=== PATIENT | female | born 1975 | race Caucasian/White ===

== ENCOUNTER 2018-10-06 14:00 | Emergency (ER) | payer OTHER ==
[2018-10-06] MEDS ORDERED: NS 0.9% 1000 ML** 1,000 ML IV ONE (14:17)
[2018-10-06] MEDS ORDERED: Morphine 4 MG/ML VIAL (1 ml) 4 MG/ML VIAL IV ONE ×2 (14:17→16:16)
[2018-10-06] MEDS ORDERED: Ondansetron INJ* 2 MG/ML VIAL IV ONE (14:17)
[2018-10-06] MEDS ORDERED: Famotidine IV* 10 MG/ML 2 ML (20 mg) IV ONE (14:17)
[2018-10-06 14:32] LABS: ABS Lymphocytes 0.8 10^3/ul (1.0-4.8); ABS Monocytes 0.4 10^3/ul (0-0.8); ABS Neutrophils 6.3 10^3/ul (1.5-7.7); Eosinophil % 0.4 %; Hematocrit 38 % (35-47); Lymphocyte % 10.4 %; Mean Corpuscular HGB Conc 34 g/dL (31-36); Mean Corpuscular Hemoglobin 31 pg (27-31); Mean Corpuscular Volume 89 fL (80-97); Mean Platelet Volume 7.5 fL (7.4-10.4); Platelet Count 165 10^3/uL (150-450); Red Blood Count 4.25 10^6 /uL (3.70-4.87); Red Cell Distribution Width 13 % (10-15); White Blood Count 7.6 10^3/uL (3.5-10.8)
[2018-10-06 14:54] LABS: ALT 11 U/L (7-52); AST 17 U/L (13-39); Albumin/Globulin Ratio 1.6 (1-3); Alkaline Phosphatase 39 U/L (34-104); Anion Gap 7 mmol/L (2-11); BUN/Creatinine Ratio 13.2 (8-20); Blood Urea Nitrogen 10 mg/dL (6-24); C Reactive Protein 13.01 mg/L (<8.01); CO2 Carbon Dioxide 24 mmol/L (22-32); Chloride 105 mmol/L (101-111); EGFR African American 99.6 (>60); EGFR Non-African American 82.3 (>60); Globulin 2.5 g/dL (2-4); Glucose 105 mg/dL (70-100); Potassium 3.6 mmol/L (3.5-5.0); Sodium 136 mmol/L (135-145); Total Protein 6.5 g/dL (6.4-8.9)
--- NOTE | 2018-10-06 14:54 | ED ---
Abdominal Pain/Female - HPI Summary HPI Summary: The patient is a 43 y/o f presenting to the ED with the chief complaint of lower abdominal pain since this morning, 10/06/18. The patient reports intensifying pain since onset, radiating through her back. Patient also reports passing loose black stool several times throughout the day. She claims that her stool did not resemble diarrhea. Patient claimed that usage of a heating pad and ingestion of rice did not affect the pain. However, the ingestion of rice was quickly followed by a bowel movement, which was still dark; her male energy conservation specialist in the room confirmed that the stool was black. Patient experienced nausea/vomiting after ingesting rice, but is currently not experiencing nausea. Previously, the patient has experienced symptoms of irritable bowel syndrome, but her previous episodes were not as painful or intense as the one she is experiencing today. Patient denies feeling chest pain or shortness of breath. Her last menstrual cycle was two weeks ago. Patient denies any other medical history. Patient has a surgical history of spleen repair when she was [age] years old and cranial facial surgery when she was [age] years old. Patient has not reported any other aggravating/alleviating factors. - History of Current Complaint Chief Complaint: EDAbdPain Stated Complaint: ABD PAIN/BACK PAIN PER PT Time Seen by Provider: 10/06/18 14:17 Hx Obtained From: Patient, Family/Mold Chipper - male energy conservation specialist Hx Last Menstrual Period: 04/08/14 Onset/Duration: Lasting Hours, Worse Since Timing: Hours Severity Currently: Severe Pain Intensity: 10 Pain Scale Used: 0-10 Numeric Location: Other - lower abdomen Radiates: Yes Radiates to: Back Character: Other: - intense Aggravating Factor(s): Food - caused nausea/vomiting Alleviating Factor(s): Nothing Associated Signs and Symptoms: Positive: Back Pain, Blood in Stool, Nausea, Vomiting. Negative: Chest Pain, Diarrhea Allergies/Adverse Reactions: Allergies Allergy/AdvReac Type Severity Reaction Status Date / Time azithromycin Allergy Unknown Verified 10/06/18 14:09 Reaction Details Iodinated Contrast Media Allergy Sneezing Verified 10/06/18 15:49 Home Medications: Home Medications Beclomethasone Dipropionate [Qnasl] 1 - 2 spray BOTH NARES DAILY 10/06/18 [ History Confirmed 10/06/18] Norgestimate-Ethinyl Estradiol [Norg-Ee 0.18-0.215-0.25/0.035] 1 tab PO DAILY [History Confirmed 10/06/18] PMH/Surg Hx/FS Hx/Imm Hx GI History: Reports: Hx Irritable Bowel - Patient did not say that she was diagnosed, but experienced symptoms of IBS Sensory History: Denies: Hx Legally Blind - Cancer History Hx Chemotherapy: No Hx Radiation Therapy: No - Surgical History Surgical History: Yes Surgery Procedure, Year, and Place: Patient had a spleen repair surgery when she was [age] years old. Patient had a cranial face surgery when she was [age] years old Infectious Disease History: No Infectious Disease History: Denies: Traveled Outside the [place] in Last 30 Days - Family History Known Family History: Positive: Hypertension - Patient's mother and grandmother took blood pressure medicine, Blood Disorder - Patient's grandfather had a blood disorder, Other - Mother had diverticulitis - Social History Alcohol Use: Daily Substance Use Type: Reports: None Smoking Status (MU): Never Smoked Tobacco Review of Systems Negative: Chest Pain Negative: Shortness Of Breath Gastrointestinal: Other - POSITIVE - DARK STOOLS Positive: Abdominal Pain, Vomiting, Nausea - since resolved . Negative: Diarrhea All Other Systems Reviewed And Are Negative: Yes Physical Exam - Summary Physical Exam Summary: VITAL SIGNS: Reviewed. GENERAL: Patient is a well-developed and nourished female who is lying comfortable in the stretcher. Patient is not in any acute respiratory distress. HEAD AND FACE: No signs of trauma. No ecchymosis, hematomas or skull depressions. No sinus tenderness. EYES: PERRLA, EOMI x 2, No injected conjunctiva, no nystagmus. EARS: Hearing grossly intact. Ear canals and tympanic membranes are within normal limits. MOUTH: Oropharynx within normal limits. NECK: Supple, trachea is midline, no adenopathy, no JVD, no carotid bruit, no c- spine tenderness, neck with full ROM. CHEST: Symmetric, no tenderness at palpation. LUNGS: Clear to auscultation bilaterally. No wheezing or crackles. CVS: Regular rate and rhythm, S1 and S2 present, no murmurs or gallops appreciated. ABDOMEN: Diffuse abdominal tenderness. No rebound, no guarding, and no masses palpated. Bowel sounds are normal. RECTAL EXAM: Female nurse's aide present in the room during the exam. No hemorrhoids, gross blood, or melena. EXTREMITIES: FROM in all major joints, no edema, no cyanosis or clubbing. NEURO: Alert and oriented x 3. No acute neurological deficits. Speech is normal and follows commands. SKIN: Dry and warm. Triage Information Reviewed: Yes Vital Signs On Initial Exam: Initial Vitals Temp Pulse Resp BP Pulse Ox 98.6 F 80 16 146/94 100 10/06/18 14:04 10/06/18 14:04 10/06/18 14:04 10/06/18 14:04 10/06/18 14:04 Vital Signs Reviewed: Yes Abdomen Description: Negative: Guarding Diagnostics - Vital Signs Vital Signs Temp Pulse Resp BP Pulse Ox 10/06/18 14:36 16 10/06/18 14:04 98.6 F 80 16 146/94 100 - Laboratory Lab Results: Lab Results 10/06/18 10/06/18 Range/Units 14:22 14:26 WBC 7.6 (3.5-10.8) 10^3/uL RBC 4.25 (3.70-4.87) 10^6 /uL Hgb 13.0 (12.0-16.0) g/dL Hct 38 (35-47) % MCV 89 (80-97) fL MCH 31 (27-31) pg MCHC 34 (31-36) g/dL RDW 13 (10-15) % Plt Count 165 (150-450) 10^3/uL MPV 7.5 (7.4-10.4) fL Neut % (Auto) 83.1 % Lymph % (Auto) 10.4 % [place] % (Auto) 5.8 % Eos % (Auto) 0.4 % Baso % (Auto) 0.3 % Absolute Neuts (auto) 6.3 (1.5-7.7) 10^3/ul Absolute Lymphs (auto) 0.8 L (1.0-4.8) 10^3/ul Absolute Monos (auto) 0.4 (0-0.8) 10^3/ul Absolute Eos (auto) 0.0 (0-0.6) 10^3/ul Absolute Basos (auto) 0.0 (0-0.2) 10^3/ul Absolute Nucleated RBC 0.0 10^3/ul Nucleated RBC % 0.0 Blood Type B Positive Antibody Screen Pending Result Diagrams: 10/06/18 14:26 10/06/18 14:26 Lab Statement: Any lab studies that have been ordered have been reviewed, and results considered in the medical decision making process. - CT AB CT CT Interpretation Completed By: Radiologist Summary of CT Findings: IMPRESSION: NO ACUTE NONCONTRAST CT PATHOLOGY OF THE VISUALIZED ABDOMEN OR PELVIS. ED provider has reviewed this report. - EKG 1426 Cardiac Rate: NL - 76 bpm EKG Rhythm: Sinus Rhythm - normal Summary of EKG Findings: Normal sinus rhythm with rate of 76 bpm, no ST elevations Re-Evaluation - Re-Evaluation First Eval Re-Evaluation Time: 18:01 Change: Improved Comment: I discussed all the findings and test results with the patient. Patient was instructed to return to the emergency room immediately if any of the symptoms return worsens. Plan of care was discussed with the patient and understands and agrees. All questions were answered at patient satisfaction. There were no further complaints or concerns. Lung exam before discharge: CTA B/ L. Good air exchange. No wheezing or crackles heard. CVS: S1 and S2 present. No murmurs appreciated. Patient is alert and oriented x 3. Patient is hemodynamically stable. Patient will be discharged home with follow up PCP in the next 2-3 days Abdominal Pain Fem Course/Dx - Course Course Of Treatment: The patient is a 43 y/o f presenting to the ED with the chief complaint of lower abdominal pain since this morning, 10/06/18. The patient reports intensifying pain since onset, radiating through her back. Patient also reports passing loose black stool several times throughout the day. She claims that her stool did not resemble diarrhea. Patient claimed that usage of a heating pad and ingestion of rice did not affect the pain. However, the ingestion of rice was quickly followed by a bowel movement, which was still dark; her male energy conservation specialist in the room confirmed that the stool was black. Patient experienced nausea/vomiting after ingesting rice, but is currently not experiencing nausea. Previously, the patient has experienced symptoms of irritable bowel syndrome, but her previous episodes were not as painful or intense as the one she is experiencing today. Patient denies feeling chest pain or shortness of breath. Her last menstrual cycle was two weeks ago. Patient denies any other medical history. Patient has a surgical history of spleen repair when she was [age] years old and craniofacial surgery when she was [age] years old. Patient has not reported any other aggravating/alleviating factors. Blood test results without any significant abnormality except for glucose of 105, CRP of 13, and urinalysis negative for UTI. The ED course the patient was given fluids, Zofran for nausea vomiting, Pepcid, and morphine for pain. After these medications were given the symptoms are resolved. Occult blood is negative. I discussed all the findings and test results with the patient. Patient was instructed to return to the emergency room immediately if any of the symptoms return worsens. Plan of care was discussed with the patient and understands and agrees. All questions were answered at patient satisfaction. There were no further complaints or concerns. Lung exam before discharge: CTA B/L. Good air exchange. No wheezing or crackles heard. CVS: S1 and S2 present. No murmurs appreciated. Patient is alert and oriented x 3. Patient is hemodynamically stable. Patient will be discharged home with follow up PCP in the next 2-3 days - Diagnoses Provider Diagnoses: Lower abdominal pain Discharge - Sign-Out/Discharge Documenting (check all that apply): Patient Departure - discharge Patient Received Moderate/Deep Sedation with Procedure: No - Discharge Plan Condition: Stable Disposition: HOME Prescriptions: Dicyclomine CAP* [Bentyl CAP*] 10 mg PO TID PRN #9 cap PRN Reason: Pain - Mild Patient Education Materials: Acute Abdominal Pain (ED) Referrals: William Massey MD [Primary Care Provider] - 3 Days Additional Instructions: Please return to the ED if you experience any new or worsening symptoms. Additionally, please follow up with your primary care provider within the next three days. - Billing Disposition and Condition Condition: STABLE Disposition: Home - Attestation Statements Document Initiated by Danny: Yes Documenting Scribe: Pawan Meyer Provider For Whom Danny is Documenting (Include Credential): Dr. Lobito Mims MD Scribe Attestation: Pawan Torrez scribed for Dr. Lobito Mims MD on 10/07/18 at 0746. Scribe Documentation Reviewed: Yes Provider Attestation: The documentation as recorded by the Pawan morales accurately reflects the service I personally performed and the decisions made by me, Dr. Lobito Mims MD Status of Scribe Document: Viewed
[2018-10-06 14:59] LABS: HCG Pregnancy < 0.60 mIU/mL
[2018-10-06 17:17] LABS: Urine Appearance Clear; Urine Bacteria Absent (Absent); Urine Bilirubin Negative (Negative); Urine Blood 3+ (Negative); Urine Color Yellow; Urine Glucose Negative (Negative); Urine Ketones 2+ (Negative); Urine Nitrite Negative (Negative); Urine Protein Negative (Negative); Urine Red Blood Cell Trace(0-2/hpf) (Absent); Urine Specific Gravity 1.019 (1.010-1.030); Urine Squamous Epithelial Cell Present (Absent); Urine Urobilinogen Negative (Negative); Urine White Blood Cell Trace(0-5/hpf) (Absent)
[2018-10-06 18:35] VITALS: BP 141/82
== END 2018-10-06 18:10 | disposition home or self-care (01) ==
LOC: ED 14:00
DX: R10.30 Lower abdominal pain, unspecified (principal); Z88.1 Allergy status to other antibiotic agents; Z91.041 Radiographic dye allergy status; Z79.899 Other long term (current) drug therapy
CPT/HCPCS: 36415; 74176; 80053; 81003; 81015; 82272; 83605; 83690; 84702; 85025; 86140; 86850; 86870; 86880; 86900; 86901; 87086; 93005; 96361; 96374; 96375; 96376; 99283; J2270; J2405